=== PATIENT | female | born 1980 | race Caucasian/White ===

== ENCOUNTER 2023-10-28 12:56 | Emergency (ER) | payer MEDICAID ==
[~2023-10-28] VITALS: Ht 167.6 cm; Wt 97.0 kg
[2023-10-28 13:02] VITALS: O2SAT 100
[2023-10-28 13:39] LABS: BASOPHILS % 1.2 % (0.0-2.0); EOSINOPHILS % 1.9 % (0.0-5.0); HEMATOCRIT. 39.8 % (36.0-48.0); HEMOGLOBIN. 13.2 g/dL (12.0-16.0); LYMPHOCYTES % 38.7 % (20.0-50.0); MEAN CORPUSCULAR HEMOGLOBIN 29.6 pg (28.0-32.0); MEAN CORPUSCULAR HGB CONC 33.3 g/dL (31.0-37.0); MEAN CORPUSCULAR VOLUME 88.9 fL (81.0-99.0); MONOCYTES % 6.1 % (2.0-8.0); NEUTROPHILS % 52.1 % (40.0-76.0); PLATELET 231 x1000/uL (130-400); RED BLOOD CELL COUNT 4.47 mill/uL (4.2-5.4); RED CELL DISTRIBUTION WIDTH 13.5 % (11.6-14.6); WHITE BLOOD COUNT 5.6 x1000/uL (4.5-11.0)
[2023-10-28 13:58] LABS: ALANINE AMINOTRANSFERASE 95 IU/L (10-49); ALBUMIN 4.6 g/dL (3.2-4.8); ASPARTATE AMINOTRANSFERASE 50 IU/L (<34); BILIRUBIN TOTAL 0.8 mg/dL (0.1-1.0); CALCIUM 9.2 mg/dL (8.7-10.4); CARBON DIOXIDE 28 mEq/L (21-32); CHLORIDE 106 mEq/L (98-107); CREATININE 0.7 mg/dL (0.6-1.0); GLUCOSE 139 mg/dL (70-105); PROTEIN TOTAL 8.7 g/dL (6.0-8.3); SODIUM 137 mEq/L (136-145); UREA NITROGEN BLOOD 8 mg/dL (9-23)
[2023-10-28 14:14] LABS: CLARITY URINE CLEAR (CLEAR); COLOR URINE YELLOW (YELLOW); GLUCOSE URINE NEGATIVE (NEGATIVE); KETONES URINE NEGATIVE (NEGATIVE); LEUKOCYTE ESTERASE URINE NEGATIVE (NEGATIVE); NITRITE URINE NEGATIVE (NEGATIVE); OCCULT BLOOD URINE NEGATIVE (NEGATIVE); PH URINE 5.5 (4.5-8.0); PROTEIN URINE NEGATIVE (NEGATIVE); SPECIFIC GRAVITY URINE 1.017 (1.005-1.030); UROBILINOGEN URINE 0.2 E.U./dL (0.2-1.0)
[2023-10-28] MEDS: LABETALOL HCL VIAL 20 MG/4 ML VIAL IV ONE (15:17)
[2023-10-28] MEDS: LABETALOL 5MG/ML SYR 20 MG/4 ML SYRINGE IV NR (15:18)
[2023-10-28] MEDS ORDERED: HYDR25TA MT (17:03)
[2023-10-28] MEDS ORDERED: AMLO5TAB88 MT (17:03)
[2023-10-28 19:14] VITALS: BP 167/92; PULSE 80; RESP 19; TEMP 98
== END 2023-10-28 19:24 | disposition home or self-care (01) ==
LOC: ER 12:56
DX: I10 Essential (primary) hypertension (principal); E05.90 Thyrotoxicosis, unspecified without thyrotoxic crisis or storm; R51.9 Headache, unspecified; Z88.0 Allergy status to penicillin; Z90.49 Acquired absence of other specified parts of digestive tract; Z90.710 Acquired absence of both cervix and uterus
CPT/HCPCS: 80053; 81003; 83880; 85025; 36415; 71045; 70450; 93005; 96374; 99285; J3490; Z7610 ×2